=== PATIENT | female | born 1960 | race Caucasian/White ===

== ENCOUNTER → 2017-09-06 | Day surgery (SDC) | payer MEDICARE, OTHER ==
[~2017-09-06] MED LIST: ACET-704 PO; AMIT50TA PO; ATOR40TA PO; BACITRACIN 50,000 UNIT VIAL. ONE; BUDE10.2 IH; BUPIVACAINE MPF 0.5% 30 ML VIAL. ONE; CLINDAMYCIN 600MG PREMIX 50 ML IV ONE; CLOP75TA57 PO; CYCL-331 PO; DEXAMETHASONE SOD PHOS 4 MG/ML VIAL ONE; DEXL60CA2 PO; DICL50TA4 PO; DICY10AM PO; DULO60CA6 PO; FLUD0.1T PO; FLUT16SP21 NS; IV RINGERS SOLUTION,LACTATED 1,000 ML IV SCH; LIDOCAINE 1% PF 2 ML VIAL. ID PRN; LIDOCAINE 1% PF 30 ML VIAL. ONE; MIDAZOLAM HCL PF 2 MG/2 ML VIAL. ONE; MONT10TA9 PO; ONDANSETRON PF 4 MG/2 ML VIAL. IV PRN; ONDANSETRON PF 4 MG/2 ML VIAL. ONE; PROCHLORPERAZINE 10 MG/2 ML VIAL. IV PRN; PROPOFOL 10,000 MCG/ML (20ML) VIAL IV ONE; PROPOFOL 40 ML IV ONE; ROFL500T7 PO; ROPI0.5T PO; TOPI200T25 PO; TRAZ-90 PO
[2017-09-06 10:05] LABS: BASO # 0.1 x10^3/uL (0.0-0.2); BASO % 1 % (0-3); EOS # 0.1 x10^3/uL (0.0-0.7); EOS % 2 % (0-3); HEMATOCRIT 33.8 % (36.0-47.0); HEMOGLOBIN 11.2 g/dL (12.0-15.5); LYMPH # 2.2 x10^3/uL (1.0-4.8); LYMPH % 26 % (24-48); MEAN CORPUSCULAR HEMOGLOBIN 31 pg (25-35); MEAN CORPUSCULAR HGB CONC 33 g/dL (31-37); MEAN CORPUSCULAR VOLUME 94 fL (79-100); MONO # 0.5 x10^3/uL (0.0-1.1); MONO % 5 % (0-9); NEUT # 5.8 x10^3uL (1.8-7.7); NEUT % 67 % (31-73); PLATELET COUNT 245 x10^3/uL (140-400); RED BLOOD COUNT 3.59 x10^6/uL (3.50-5.40); RED CELL DISTRIBUTION WIDTH 14.4 % (11.5-14.5); WHITE BLOOD COUNT 8.7 x10^3/uL (4.0-11.0)
[2017-09-06] MEDS: CLINDAMYCIN 600MG PREMIX 50 ML IV ONE (10:25)
[2017-09-06 12:40] VITALS: BP 101/60
== END | disposition home or self-care (01) ==
LOC: SURG 08:00
PROVIDERS: ATTEND Anesthesiology Pain Medicine
DX: M54.16 Radiculopathy, lumbar region (principal); J44.9 Chronic obstructive pulmonary disease, unspecified; K21.9 Gastro-esophageal reflux disease without esophagitis; Z90.710 Acquired absence of both cervix and uterus; Z98.890 Other specified postprocedural states; Z98.42 Cataract extraction status, left eye; Z98.41 Cataract extraction status, right eye; Z86.73 Personal history of transient ischemic attack (TIA), and cerebral infarction without residual deficits; Z79.82 Long term (current) use of aspirin
CPT/HCPCS: 36415; 62380; 85025; 85610; 85730; J1100; J2001; J2250; J2405; J2704; J3010; J3490; J7120